=== PATIENT | female | born 1950 | race Caucasian/White ===

== ENCOUNTER 2020-06-27 09:16 | Inpatient (IN) ==
[2020-06-27] MEDS ORDERED: ASPIRIN CHEW 324 MG ONE (09:52)
[2020-06-27] MEDS ORDERED: ASPIRIN CHEW 324 MG PO STA (09:52)
[2020-06-27 10:13] LABS: iSTAT Creatinine 0.6 mg/dl (0.6-1.3); iSTAT Hemoglobin 13.3 g/dl (12.0-16.0); iSTAT Ionized Calcium 1.27 mmol/l (1.12-1.32); iSTAT Potassium 3.7 mmol/L (3.3-5.0)
[2020-06-27 10:23] LABS: Basophils # (auto) 0.03 K/uL (0-0.2); Basophils % (auto) 0.4 %; Eosinophils # (auto) 0.08 K/uL (0-0.5); Eosinophils % (auto) 1.1 %; Hematocrit (blood only) 40.1 % (37-47); Hemoglobin 13.9 g/dL (12.0-16.0); Immature Granulocytes # (auto) 0.02 K/uL (0.00-0.02); Immature Granulocytes % (auto) 0.3 %; Lymphocytes # (auto) 1.85 K/uL (1.2-3.4); Lymphocytes % (auto) 24.9 %; Mean Corpuscular Hemoglobin 31.7 pg (25-34); Mean Corpuscular Hgb Conc 34.7 g/dL (32-36); Mean Corpuscular Volume 91.6 fL (80-100); Mean Platelet Volume 10.8 fL (7.4-10.4); Monocytes # (auto) 0.65 K/uL (0.11-0.59); Monocytes % (auto) 8.7 %; Neutrophils % (auto) 64.6 %; Platelet Count 384 K/uL (130-400); RDW Coefficient of Variation 13.3 % (11.5-14.5); RDW Standard Deviation 44.5 fL (36.4-46.3); Red Blood Count 4.38 M/uL (4.2-5.4); White Blood Count 7.43 K/uL (4.8-10.8)
--- NOTE | 2020-06-27 10:28 | XRay Report ---
XR chest 1V portable CLINICAL HISTORY: Atypical chest pain. COMPARISON STUDY: No previous studies for comparison. FINDINGS: Lung volumes are normal. Lungs are clear. There is no pneumothorax or pleural effusion. Car diac size is normal. Mediastinal contours are normal. There is no evidence for pulmonary edema. A jad ear density projects over the left clavicle. IMPRESSION: No acute cardiopulmonary findings. ACT 112: Negative or not required by law. Electronically signed by: Sea Villarreal M.D. 06/27/2020 10:27 AM
[2020-06-27 10:40] LABS: BUN Creatinine Ratio 28.9 (10-20); Calcium 10.3 mg/dl (8.5-10.1); Creatinine Clr Calc Pharmacy 67.6 ml/min; Est GFR (African American) 86.5; Est GFR (Non-African American) 74.6; Magnesium 2.2 mg/dl (1.8-2.4); Potassium 3.5 mmol/L (3.5-5.1)
[2020-06-27] MEDS ORDERED: Heparin IV Adult Wt-Based Low-Dose WITH Bolus Protocol STA (10:41)
[2020-06-27] MEDS ORDERED: HEPARIN SODIUM/DEXTROSE 25,000 UNITS/500 ML BAG IV SCH (10:45)
[2020-06-27] MEDS ORDERED: HEPARIN SOD (PORCINE) 1000 UNIT/ML ONE (10:50)
--- NOTE | 2020-06-27 10:50 | History & Physical Report ---
Date of Service June 27, 2020 Assessment & Plan (1) NSTEMI (non-ST elevated myocardial infarction): Aspirin 81 mg p.o. daily Start metoprolol tartrate 25 mg twice daily -first dose tonight Start atorvastatin 40 mg p.o. every afternoon - noted history of statin induced muscle cramps therefore elected for 40 rather than 80 mg Continue heparin IV low-dose with bolus Lipid panel and HbA1c with a.m. labs Consult cardiology - n.p.o. for cardiac catheterization later today (2) Hyperlipidemia: Noted history of this. Untreated due to statin induced muscle cramps. Lipid panel in a.m. and start atorvastatin as above. (3) DVT prophylaxis: Heparin IV drip as above Admission and Anticipated Discharge Date Admission Date: June 27, 2020 History of Present Illness Chief Complaint: Chest pain Primary Care Provider: RENA Munroe Wilbert Moore is a 70-year-old female who presents to the ER with chest pain. She reports waking up around 5:30 AM today and having an egg sandwich. She first noted significant substernal chest pain at 6 AM radiating both sides to her back. She felt this may be reflux (she has had intermittent burping for the past year which is relieved with Tums) therefore took some Tums although did not significantly change the pain. After resting her pain went away and she managed to go to work but felt significantly fatigued that she needs to go home. On the drive home her chest pain returned with associated diaphoresis. Again this appeared to relieve at rest when she got home. After coming back again she asked her neighbor to drive her to the emergency room as she was concerned she may be having a heart attack. During the drive down the insides she noticed associated shortness of breath, nausea and diaphoresis. Severity 7/10 [address] drive. This was also the longest it lasted for around 30 minutes. After having a bowel movement in the emergency room she felt significant relief from her chest pain and it is not yet returned. Notable history of hyperlipidemia which is untreated due to side effects from x3 statins causing muscle cramps. She denies any significant history resembling unstable angina. Significant family history of myocardial infarction on both sides of her family however family members were > 60 years old at the time. Non-smoker. In the ER EKG was remarkable for ST depressions in anterior lateral leads. Troponin elevated at 0.117. She is chest pain-free. She has been seen by interventional cardiology and will be taken for cardiac catheterization later today. Allergies Allergy/AdvReac Type Severity Reaction Status Date / Time No Known Allergies Allergy Unverified 12/06/19 08:27 Home Medications Medication Instructions Recorded Confirmed Type No Known Home Medications 12/06/19 12/06/19 History Past Med/Surg History Medical History (Updated 06/27/20 @ 16:12 by Lito Mccurdy) Acne rosacea Surgical History Broken collarbone History of left knee replacement History of left knee replacement History of tonsillectomy Hx of tubal ligation Family History Father Diabetes Hypertension Grandfather (Maternal) Heart disease Mother Stroke Denies family history of Ovarian cancer Prostate cancer Colorectal cancer Social History Smoking Status: Never smoker Second Hand Exposure: No; Hx Alcohol Use: No Hx Substance Use: No Preferred Language: Libyan Dump Grader Required: No Beliefs That Will Affect Care: None marital status: Current Living Situation: Alone current occupational status: employed current occupation: [employer] Feels Safe at Home: Yes Dental Care, Regularly: Yes Physical Activity Frequency: 1-2 Times per Week Assistive Devices: Glasses Review of Systems Review of Systems: All systems reviewed & are unremarkable except as noted in HPI & below Physical Exam Constitutional: well developed and well nourished; no acute distress Eyes: + anicteric sclerae; normal pupil size ENMT: external ear and nose normal, oropharynx normal Respiratory: normal respiratory effort, lungs clear to auscultation Cardiovascular: RRR, no murmur, no edema Gastrointestinal (Abdomen): normal bowel sounds, soft, nontender, no hepatosplenomegaly Musculoskeletal: no cyanosis or clubbing, extremities motor strength 5/5 Skin: no rashes, warm and dry Neurologic: moves all extremities and awake; not confused Psychiatric: A+Ox3, euthymic affect Genitourinary: no CVA tenderness Results & Data Results & Data ([facility]) Vital Signs (Past 12 Hours) Vital Signs Temp Pulse Pulse Resp BP BP Pulse Ox 06/27/20 10:40 72 18 112/70 100 06/27/20 09:33 95 06/27/20 09:19 36.4 C L 75 18 134/81 100 Diagnostic Findings XR chest 1V portable IMPRESSION: No acute cardiopulmonary findings. Medications Administered ER medications given: Aspirin 324 mg p.o. Heparin IV low-dose with bolus ECG Indication: chest pain Rate (beats per minute): 61 Rhythm: normal sinus Findings: + LAFB, + RBBB (old) and + ST depression (Anterolateral) Comparison ECG Date: from (November 20, 2015) Change: the following changes noted (Significant ST depression as above is new) Additional Comments: ST changes are dynamic/improving from serial EKGs Code Status & VTE Plan Code Status Full VTE Prophylaxis Plan VTE Prophylaxis will be ordered: Yes PG Care Time/CCT Total # of Minutes Spent Total Time Spent with Patient: Total time spent is greater than 50% in coordination of care (as documented) at patient's floor/unit and/or counseling patient: Coding Level of Care Code 26343 Initial Inpt Care Lvl 2 History Comprehensive Exam Comprehensive Medical Decision Making Moderate Complexity Diagnoses NSTEMI (non-ST elevated myocardial infarction) I21.4 Hyperlipidemia E78.5 Hyperlipidemia type: unspecified DVT prophylaxis Z29.9 (1) Hyperlipidemia Hyperlipidemia type: unspecified Qualified Code(s): E78.5 - Hyperlipidemia, unspecified
[2020-06-27 10:51] LABS: Troponin I 0.117 ng/ml (0-0.045)
[2020-06-27 11:07] LABS: Partial Thromboplastin Ratio 1.1; Partial Thromboplastin Time 28.4 Seconds (21.0-31.0); Prothrombin Time 9.8 Seconds (9.0-12.0)
[2020-06-27] MEDS ORDERED: fentaNYL citrate 100 MCG/2 ML VIAL ONE (11:19)
[2020-06-27] MEDS ORDERED: niCARdipine HCL INJ 2.5 MG/ML 10 ML AMP ONE (11:19)
[2020-06-27] MEDS ORDERED: HEPARIN (PORCINE) 1000 UNIT/ML 10 ML (CATH LAB USE ONLY) ONE (11:19)
[2020-06-27] MEDS ORDERED: MIDAZOLAM HCL 1 MG/ML 2ML VIAL ONE ×2 (11:20→12:38)
[2020-06-27] MEDS ORDERED: NITROGLYCERIN/D5W 100MCG/ML 20ML SYR ONE (11:20)
--- NOTE | 2020-06-27 11:23 | Pre Anesthesia Assessment ---
Date of Service June 27, 2020 Pre Sedation Assessment Vital Signs Temp Pulse Pulse Resp BP BP Pulse Ox 06/27/20 11:12 97.9 F 77 18 132/79 96 06/27/20 10:58 63 20 112/70 98 06/27/20 10:40 72 18 112/70 100 06/27/20 09:33 95 06/27/20 09:19 97.5 F L 75 18 134/81 100 Cardiovascular RRR, no murmur, no edema Respiratory normal respiratory effort, lungs clear to auscultation Pre-Sedation Airway Assessment Smoking Status: Never smoker Hx Sleep Apnea: No Hx Difficult Intubation: No Short, Thick Neck: No Thyromental Distance: > or= 3.5 Finger Breadths Oral Cavity: + WNL Mallampati Class: III ASA: ASA3 Procedure Planning Contraindications for Sedation: none Current Medications Reviewed: Yes Notes The planned sedation has been discussed with the patient. Informed Consent was obtained. I have identified the patient, determined the appropriateness of sedation and have assessed the patient immediately prior to the procedure. All medicine(s) and interventions are by my order.
--- NOTE | 2020-06-27 11:37 | Cardiology Consultation ---
Date of Consultation June 27, 2020 Assessment & Plan (1) NSTEMI (non-ST elevated myocardial infarction): Presentation consistent with high-risk NSTEMI nd recommend proceeding with urgent cardiac catheterization and likely primary PCI. No apparent contraindications to procedure. Discussed risks, benefits, alternatives of procedure with patient and they are willing to proceed. Given IV heparin in the ED. Further recommendations pending findings of coronary angiography. History of Present Illness Attending Physician: Wilbur Avila MD History of Present Illness 70-year-old year old woman here with acute chest pain and ECG concerning for high-risk ACS. Patient seen urgently in the ED after initial ECG showed dynamic anterior ST depressions. No prior cardiac history. Cardiac risk factors include dyslipidemia and family history of CAD (Father AL 70s). Other medical issues include osteoarthritis post left knee replacement. Has had stuttering chest pain since last night. This morning pain became more intense. Describes bilateral chest side pain radiating up into her neck and back with associated nausea/belching, diaphoresis. Denies similar symptoms in the past. Chest pain severe at arrival but resolved with aspirin Hemodynamically stable. EKG showed sinus rhythm with old RBBB, new LAFB and deep ST depressions in V2- V6, also with inferior ST depressions and ST elevation in AVR. After chest pain resolved ST depressions improved. Initial troponin 0.117. Allergies Allergy/AdvReac Type Severity Reaction Status Date / Time No Known Allergies Allergy Unverified 12/06/19 08:27 Home Medications Medication Instructions Recorded Confirmed Type No Known Home Medications 12/06/19 12/06/19 History Patient History Medical History (Updated 06/27/20 @ 11:24 by Ashvin Jones MD) Acne rosacea Surgical History Broken collarbone History of left knee replacement History of left knee replacement History of tonsillectomy Hx of tubal ligation Family History Father Diabetes Hypertension Grandfather (Maternal) Heart disease Mother Stroke Denies family history of Ovarian cancer Prostate cancer Colorectal cancer Social History Smoking Status: Never smoker Second Hand Exposure: No; Hx Alcohol Use: No Hx Substance Use: No Preferred Language: Urugu[place] Pattern Hanger Required: No Beliefs That Will Affect Care: None marital status: Current Living Situation: Alone current occupational status: employed current occupation: [employer] Feels Safe at Home: Yes Dental Care, Regularly: Yes Physical Activity Frequency: 1-2 Times per Week Assistive Devices: None Physical Exam Constitutional: no acute distress and not ill appearing Eyes: + anicteric sclerae Respiratory: normal respiratory effort, lungs clear to auscultation Cardiovascular: RRR, no murmur, no edema Vessels: radial pulses present Extremities: no edema Gastrointestinal (Abdomen): normal bowel sounds, soft, nontender, no hepatosplenomegaly Skin: no rashes, warm and dry Neurologic: no focal motor deficits Psychiatric: A+Ox3, euthymic affect Results & Data ([facility]) Vital Signs (Past 12 Hours) Vital Signs Temp Pulse Pulse Resp BP BP Pulse Ox 06/27/20 11:12 97.9 F 77 18 132/79 96 06/27/20 10:58 63 20 112/70 98 06/27/20 10:40 72 18 112/70 100 06/27/20 09:33 95 06/27/20 09:19 97.5 F L 75 18 134/81 100 PG Care Time/CCT Total # of Minutes Spent Total Time Spent with Patient: Total time spent is greater than 50% in coordination of care (as documented) at patient's floor/unit and/or counseling patient: Coding Level of Care Code 87678 Initial Inpt Care Lvl 3 Diagnoses NSTEMI (non-ST elevated myocardial infarction) I21.4
[2020-06-27 12:20] LABS: Influenza A virus by PCR Negative (Neg); Influenza B virus by PCR Negative (Neg); RSV by PCR Negative (Neg); SARS CoV2 RNA(COVID-19) InHosp NEGATIVE (Negative)
[2020-06-27] MEDS ORDERED: TICAGRELOR 90 MG TAB PO ONE (13:01)
--- NOTE | 2020-06-27 13:33 | Post Anesthesia Assessment ---
Date of Service June 27, 2020 Post Sedation Assessment Vital Signs Temp Pulse Pulse Resp BP BP Pulse Ox 06/27/20 13:15 64 20 104/71 96 06/27/20 11:12 97.9 F 77 18 132/79 96 06/27/20 10:58 63 20 112/70 98 06/27/20 10:40 72 18 112/70 100 06/27/20 09:33 95 06/27/20 09:19 97.5 F L 75 18 134/81 100 Recovery Score Activity: Moves 4 extremities Respiration: Deep Breath/Cough Circulation: +/-20% PreAnes Value Consciousness: Fully Awake Oxygen Saturation: > 92% On Room Air Post Anesthesia Score: 10 Discharge Sedation Level of Care: Fast Track Phase II Post Sedation Plan On clinical assessment, the patient appears to have tolerated the sedation without complications. Patient is recovering as anticipated. Patient will continue to be monitored by nursing and may be discharged when sedation discharge criteria are met per below protocol. Upon Completions of procedure up to 15 minutes continue every 5 minute vital signs and the P.A.R. score; then discharge to a Phase I or Fast Track to Phase II per the following guidelines: * Discharge Patient to appropriate Phase II area if PAR is 8 or greater or return to pre- procedure baseline. The post - procedure orders will be as directed. * If PAR score is less than 8 or not return to pre-procedure baseline then patient will follow Phase I monitoring till PAR is reached for Phase II. The Phase I may be done in procedure room or may call to secure a Phase I area. * If naloxone or flumazenil are used for reversal, hold in Phase I for continued monitoring from when last reversal dose was given for a minimum of 60 minutes or longer pending the nurse and/or physician discretion of patient condition before discharge to Phase II. Please call the Sedation Physician to re-evaluate and complete post-note for discharge to Phase II area. Do NOT discharge from procedure sedation or Phase 1 until post- sedation evaluation note is complete by procedure /sedation MD Sedation Discharge Instructions to be given to the patient at discharge to home.
[2020-06-27] MEDS ORDERED: ACETAMINOPHEN 325 MG TAB PO PRN ×2 (13:34→14:21)
[2020-06-27] MEDS ORDERED: NITROGLYCERIN SL 0.4 MG/TAB TAB SL PRN (13:34)
[2020-06-27] MEDS ORDERED: ONDANSETRON INJ 2 MG/ML 2 ML VIAL IV PRN ×2 (13:34→14:21)
[2020-06-27] MEDS ORDERED: SODIUM CHLORIDE 0.9% 1000ML 1,000 ML IV SCH ×2 (13:45→14:21)
--- NOTE | 2020-06-27 13:46 | Cardiac Catheterization ---
[facility] Data: Spray Foam Installer Cardiac Status Clinical evaluation leading to the procedure CAD Presenation: Non STEMI Anginal Classification: CCS IV Heart Failure: No Cardiogenic Shock within 24 Hours: No Cardiac Arrest within 24 Hours: No Imaging Studies Past 6 Months: No Stress Studies Past 6 Months: No Diagnostic Physicians Name: Wilbur Avila MD Status: Urgent Closure Device Percutaneous Entry Location: Radial Closure Device: Radial Band Recommendations: PCI without planned CABG PCI Indication: PCI for high risk Non-TONI Lesion Segment Name: Mid LAD Culprit Artery: Yes Stenosis Prior to Rx (%): 95 Chronic Total Occlusion: No IVUS: No FFR: No Pre-Procedure GHAZALA Flow: 3 Previously Treated Lesion: No Lesion Complexity: Non-High/Non-C Lesion Length (mm): 34 Thrombus Present: Yes Bifurcation Lesion: No Guidewire Across Lesion: Stenosis Post-Procedure (%): 0 Post-Procedure GHAZALA Flow: 3 Devices(s) Deployed: Yes Yes Intraprocedure Events Significant Disection: No Perforation: No Cardiac Cath Procedure Full Procedure Date June 27, 2020 Pre-Procedure Diagnosis Pre-Procedure Diagnosis: Non STEMI AUC Score AUC Score: 8 Post-Procedure Diagnosis Post-Procedure Diagnosis: Successful PCI and Normal Intracardiac Pressures Procedure(s) Performed Procedure(s) Performed: Coronary Angiography, Left Heart Cath and Drug Eluting Stent Recreation Attendant Wilbur Avila MD Channeler Runner(s) Arnold Estimated Blood Loss Estimated Blood Loss: 15 Medication(s) Medication(s): Fentanyl, Heparin, Lidocaine 1%, Nicardipine, Nitroglycerin and Versed Medication(s): Ticagrelor Summary of Findings Indication: High risk NSTEMI Access: 6Fr right radial artery Catheters: [place], EBU 3.5 guide Findings: LM -normal caliber, short, angiographically normal LAD -large caliber, calcified diffuse proximal to mid disease up to 95%, distal vessel without significant disease and wraps around apex RamusLarge caliber, no significant disease Circumflex -medium caliber, no significant disease RCA -dominant, large caliber, no significant disease LVEDP - 14 -- PCI -- Antithrombotic therapy: Heparin, Ticagrelor Procedure: Left main cannulated with EBU 3.5 guide BMW wire passed across lesion into distal vessel Proximal to mid LAD lesion predilated with 2.75 compliant balloon Dilated lesion stented with 4.0 x 34 mm Don drug-eluting stent Stent post-dilated with 4.0 noncompliant balloon IC vasodilators administered for spasm Post procedure GHAZALA 3 flow, stent well expanded with minimal residual stenosis and no apparent cardiac complications. Arterial Closure: TR band Summary: 1. Severe single vessel coronary artery [id number] - 95% mid LAD stenosis 2. Normal intracardiac filling pressure 3. Successful PCI of proximal to mid LAD with single drug-eluting stent (4.0 x 34 mm Don). Recommendations: To PCU for continued monitoring Loaded with ticagrelor 180 mg in Spray Foam Installer Continue dual-antiplatelet therapy for at least 1 year Continue statin, and ASCVD risk factor modification Consult cardiac Rehab Hemodynamics Rest Ao:: 107/65/89 Final Ao: 98/61/77 LV: 113/50 Recommendations Recommendations: PCI without planned CABG Specimens Specimens: None Radiation Exposure (mGy) 999 Contrast (mls) 70 Fluids (cc crystalloids) Fluids (cc crystalloids): 111 Drains Drains: none Anesthesia moderate Procedural Complication(s) None Disposition PCU I attest to the content of the Intraoperative Record and any orders documented therein. Any exceptions are noted below. [facility] Card Cath Procedure Codes Cardiac Catheterization Procedure 1: Cardiovascular Cath Procedures: 97750 Coronaries and LHC (+/-LV) Moderate Sedation Procedure 1: Sedation/Anesthesia: 79452 Mod Sedation by the same physician;Init15 Min Child Age 5 & Up Procedure 2: Sedation/Anesthesia: 63364 Mod Sedation by the same physician; Ea [id number] Minutes Stenting Procedure 1: Cardiovascular Stent Procedures: 62554 Perc transcatheter placement of intracoronary stent(s), with ang PG Care Time/CCT Total # of Minutes Spent Total Time Spent with Patient: Total time spent is greater than 50% in coordination of care (as documented) at patient's floor/unit and/or counseling patient:
--- NOTE | 2020-06-27 14:42 | Electrocardiogram Report ---
Test Reason : Blood Pressure : / mmHG Vent. Rate : 061 BPM Atrial Rate : 061 BPM P-R Int : 182 ms QRS Dur : 136 ms QT Int : 444 ms P-R-T Axes : 031 -54 005 degrees QTc Int : 446 ms Normal sinus rhythm Right bundle branch block Left anterior fascicular block Bifascicular block Marked ST abnormality, possible anterolateral subendocardial injury Abnormal ECG When compared with ECG of 20-NOV-2015 10:24, Left anterior fascicular block is now Present ST now depressed in Anterolateral leads Confirmed by Ahsan Rivas ([id number]) on 06/27/2020 2:41:53 PM Referred By: REFERRED SELF Confirmed By:Ahsan Rivas
--- NOTE | 2020-06-27 14:44 | Electrocardiogram Report ---
Test Reason : Blood Pressure : / mmHG Vent. Rate : 060 BPM Atrial Rate : 060 BPM P-R Int : 180 ms QRS Dur : 144 ms QT Int : 458 ms P-R-T Axes : 026 -45 008 degrees QTc Int : 458 ms Normal sinus rhythm Right bundle branch block Left anterior fascicular block Bifascicular block Abnormal ECG When compared with ECG of 27-JUN-2020 09:25, (unconfirmed) ST abnormality has improved Confirmed by Ahsan Rivas ([id number]) on 06/27/2020 2:44:30 PM Referred By: REFERRED SELF Confirmed By:Ahsan Rivas
--- NOTE | 2020-06-27 16:07 | Emergency Department Note ---
History of Present Illness General Chief Complaint: Cardiac Assessment Stated Complaint: CHEST PAIN/FEELING NAUSEOUS Time Seen by Provider: 06/27/20 09:23 History of Present Illness Provider Complaint: chest pain Onset (ago): day(s) 1 Duration: now resolved Onset: during rest Pain Location: substernal Pain Radiation: none Severity: severe Maximum Pain Intensity: 10 Current Pain Intensity: 0 Quality: + heaviness and + other (pressure) Relieved By: + nothing Exacerbated By: + nothing Context: no recent illness, no recent surgery, no recent travel, no trauma/injury and no history of DVT/PE Associated symptoms: no nausea, no vomiting, no diaphoresis, no dyspnea, no syncope, no palpitations, no fever, no cough and no leg swelling Treatments prior to arrival: none Home Medications Medication Instructions Recorded Confirmed Type No Known Home Medications 12/06/19 12/06/19 History Allergies Allergy/AdvReac Type Severity Reaction Status Date / Time No Known Allergies Allergy Unverified 12/06/19 08:27 Past Med/Surg History Medical History (Updated 06/27/20 @ 16:12 by Lito Mccurdy) Acne rosacea Surgical History Broken collarbone History of left knee replacement History of left knee replacement History of tonsillectomy Hx of tubal ligation Family History Father Diabetes Hypertension Grandfather (Maternal) Heart disease Mother Stroke Denies family history of Ovarian cancer Prostate cancer Colorectal cancer Social History Smoking Status: Never smoker Second Hand Exposure: No; Hx Alcohol Use: No Hx Substance Use: No Preferred Language: Andorran Train Announcer Required: No Beliefs That Will Affect Care: None marital status: Current Living Situation: Alone current occupational status: employed current occupation: [employer] Feels Safe at Home: Yes Dental Care, Regularly: Yes Physical Activity Frequency: 1-2 Times per Week Assistive Devices: Glasses Review of Systems A total of 10 systems reviewed and were otherwise negative Physical Exam Vital Signs Vital Signs - 24 hr 06/27/20 09:19 06/27/20 09:33 06/27/20 10:40 Temperature 36.4 C L Temperature Source Temporal Artery Scan Pulse Rate 75 Pulse Rate [Finger] 72 Respiratory Rate 18 18 Respiratory Effort / Characteristics Non-Labored Respiratory Depth Normal Blood Pressure 134/81 Blood Pressure [Left Arm] 112/70 Blood Pressure Mean 98 Blood Pressure Mean [Left Arm] 84 Pulse Oximetry 100 95 100 Oxygen Delivery Method Room Air Room Air Sepsis Recent Fever Within 48 Hours No Sepsis New/Unexplained Change in Mental Status No Sepsis Action Taken by Nursing No Action Required 06/27/20 10:58 Temperature Temperature Source Pulse Rate Pulse Rate [Finger] 63 Respiratory Rate 20 Respiratory Effort / Characteristics Respiratory Depth Blood Pressure Blood Pressure [Left Arm] 112/70 Blood Pressure Mean Blood Pressure Mean [Left Arm] 84 Pulse Oximetry 98 Oxygen Delivery Method Sepsis Recent Fever Within 48 Hours Sepsis New/Unexplained Change in Mental Status Sepsis Action Taken by Nursing Physical Exam GENERAL: She is oriented to person, place, and time. She appears well-developed and well-nourished. She does not appear distressed. HENT: Exam performed. -Head: Normocephalic and atraumatic. -Right Ear: External ear normal. No mastoid tenderness. -Left Ear: External ear normal. No mastoid tenderness. -Mouth/Throat: The oropharynx is clear and moist. No trismus in the jaw. No dental abscesses or uvula swelling. No oropharyngeal exudate or tonsillar abscesses. EYES: Conjunctivae and EOM are normal. Pupils are equal, round, and reactive to light. Right eye exhibits no discharge. Left eye exhibits no discharge. No scleral icterus. NECK: Normal range of motion. Neck supple. No JVD present. No spinous process tenderness present. No carotid bruit present. No rigidity. No tracheal deviation and normal range of motion present. No Brudzinski's sign and no Kernig's sign noted. CV: Normal rate, regular rhythm, normal heart sounds and intact distal pulses. There is no peripheral edema. Palpable radial pulses bue. PULM/CHEST: Effort normal and breath sounds normal. No respiratory distress. No stridor. She has no wheezes. She has no rales. -Chest Wall: She exhibits no tenderness. ABD: The abdomen is soft. Bowel sounds are normal. She has no distension. No mass is present. There is no tenderness. There is no rebound, no guarding, no Salmeron's sign and no tenderness at McBurney's point. Rovsig negative MUSC/SKEL: Normal range of motion. There is no peripheral edema, tenderness or deformity. LYMPH: No cervical adenopathy. NEURO: She is alert and oriented to person, place, and time. She has normal strength. No cranial nerve deficit or sensory deficit. Coordination and gait normal. GCS eye subscore is 4. GCS verbal subscore is 5. GCS motor subscore is 6. Cerebellar tests wnl. SKIN: Skin is warm and dry. She is not diaphoretic. PSYCH: She has a normal mood and affect. Behavior is normal. Judgment and thought content normal. Course Course 0950: The patient was evaluated in room C6. A complete history and physical exam was performed There is significant delay in evaluating this patient as on arrival into her room in the emergency department the patient went into the restroom and was having a bowel movement it did not come out for many minutes until after. EKG did show ST depression in leads I II V3 V4 V5 and V6. There is also ST elevation in lead aVR. Patient reported no chest pain at this time. 0955: Repeat EKG showed sinus rhythm with a rate of 60. AK and QTc intervals within normal limits QRS is 144. Bifascicular block present. ST depressions in leads I, II V3, V4, V5 V6 are improved as well as the ST elevation in lead aVR however they are still present. 1013: Discussed case with Dr. Avila cardiology who states he will come down to evaluate the patient. He agrees that there are ST depressions and ST elevations. No heart alert at this time per Dr. Avila. 1036: Dr. Avila at bedside. He states to admit the patient to medicine start the patient on heparin and he will cath the patient today. Dr. Jones [place] [facility]ist will be notified. Administered Medications Heparin Sodium/Dextrose (Heparin Sodium/Dextrose) 25,000 units in 500 mls @ 15 mls/hr IV .Q24H IRENE; Protocol Stop: 07/27/20 10:44 Last Admin: 06/27/20 10:54 Dose: 15 units/hr, 0.3 mls/hr Documented by: [id number] Cosigned by: [id number] Sodium Chloride (Nss 1000ml) 1,000 mls @ 100 mls/hr IV .Q10H IRENE Stop: 06/27/20 21:14 Last Admin: 06/27/20 14:40 Dose: 100 mls/hr Documented by: [id number] Discontinued Medications Aspirin (Aspirin Chew 324 Mg) Confirm Administered Dose 324 mg .ROUTE .STK-MED ONE Stop: 06/27/20 09:53 Last Admin: 06/27/20 09:54 Dose: Not Given Documented by: [id number] Aspirin (Aspirin Chew 324 Mg) 324 mg PO NOW STA Stop: 06/27/20 09:53 Last Admin: 06/27/20 09:54 Dose: 324 mg Documented by: [id number] Fentanyl Citrate (Fentanyl Citrate 100 Mcg/2 Ml Vial) Confirm Administered Dose 100 mcg .ROUTE .STK-MED ONE Stop: 06/27/20 11:20 Last Admin: 06/27/20 13:09 Dose: 100 mcg Documented by: [id number] Heparin Sodium (Porcine) (Heparin Sod (Porcine) 1000 Unit/Ml 10 Ml Vial) Confirm Administered Dose 10,000 units .ROUTE .STK-MED ONE Stop: 06/27/20 10:51 Last Admin: 06/27/20 10:55 Dose: 4,000 units Documented by: [id number] Cosigned by: [id number] Heparin Sodium (Porcine) (Heparin (Porcine) 1000 Unit/Ml 10 Ml (Yeast Washer Use Only)) Confirm Administered Dose 10,000 [facility] Stop: 06/27/20 11:20 Last Admin: 06/27/20 13:10 Dose: 5,000 units Documented by: [id number] Heparin Sodium/Dextrose (Heparin Iv Low Dose With Bolus) 1 ea N/A NOW STA; Protocol Stop: 06/27/20 10:42 Last Admin: 06/27/20 10:55 Dose: Not Given Documented by: [id number] Heparin Sodium/Sodium Chloride (Heparin In Nss Infusion 1000 Unit/500 Ml (2 U/Ml) Bag) Confirm Administered Dose 3,000 units IV .STK-MED ONE Stop: 06/27/20 11:21 Last Admin: 06/27/20 13:10 Dose: 3,000 units Documented by: [id number] Midazolam HCl (Midazolam Hcl 1 Mg/Ml 2ml Vial) Confirm Administered Dose 2 mg .ROUTE .STK-MED ONE Stop: 06/27/20 11:21 Last Admin: 06/27/20 13:10 Dose: 2 mg Documented by: [id number] Midazolam HCl (Midazolam Hcl 1 Mg/Ml 2ml Vial) Confirm Administered Dose 2 mg .ROUTE .STK-MED ONE Stop: 06/27/20 12:39 Last Admin: 06/27/20 13:10 Dose: 2 mg Documented by: [id number] Nicardipine HCl (Nicardipine Hcl Inj 2.5 Mg/Ml 10 Ml Amp) Confirm Administered Dose 25 mg .ROUTE .STK-MED ONE Stop: 06/27/20 11:20 Last Admin: 06/27/20 13:08 Dose: 25 mg Documented by: [id number] Nitroglycerin/Dextrose (Nitroglycerin/D5w 100mcg/Ml 20ml Syr) Confirm Administered Dose 2,000 mcg .ROUTE .STK-MED ONE Stop: 06/27/20 11:21 Last Admin: 06/27/20 13:10 Dose: 2,000 mcg Documented by: [id number] Ticagrelor (Ticagrelor 90 Mg Tab) Confirm Administered Dose 180 mg PO .STK-MED ONE Stop: 06/27/20 13:02 Last Admin: 06/27/20 13:08 Dose: 180 mg Documented by: [id number] Medical Decision Making Laboratory Data Result diagrams: 06/27/20 09:35 06/27/20 09:35 Labs: Lab Results 06/27/20 06/27/20 06/27/20 Range/Units 09:35 09:35 09:35 WBC 7.43 (4.8-10.8) K/uL RBC 4.38 (4.2-5.4) M/uL Hgb 13.9 (12.0-16.0) g/dL POC Hgb (12.0-16.0) g/dl Hct 40.1 (37-47) % POC Hct (37-47) % MCV 91.6 (80-100) fL MCH 31.7 (25-34) pg MCHC 34.7 (32-36) g/dL RDW Std Deviation 44.5 (36.4-46.3) fL RDW Coeff of Anahy 13.3 (11.5-14.5) % Plt Count 384 (130-400) K/uL MPV 10.8 H (7.4-10.4) fL Immature Gran % (Auto) 0.3 % Neut % (Auto) 64.6 % Lymph % (Auto) 24.9 % Bennett % (Auto) 8.7 % Eos % (Auto) 1.1 % Baso % (Auto) 0.4 % Neut # (Auto) 4.80 (1.4-6.5) K/uL Lymph # (Auto) 1.85 (1.2-3.4) K/uL Bennett # (Auto) 0.65 H (0.11-0.59) K/uL Eos # (Auto) 0.08 (0-0.5) K/uL Baso # (Auto) 0.03 (0-0.2) K/uL Immature Gran # (Auto) 0.02 (0.00-0.02) K/uL PT (9.0-12.0) Seconds INR (0.9-1.1) APTT (21.0-31.0) Seconds PTT Ratio POC Sodium (135-144) mmol/L Sodium 139 (136-145) mmol/L POC Potassium (3.3-5.0) mmol/L Potassium 3.5 (3.5-5.1) mmol/L POC Chloride (101-112) mmol/L Chloride 108 H (98-107) mmol/L Carbon Dioxide 23 (21-32) mmol/L POC Total CO2 (24-31) mmol/L Anion Gap 8.0 (3-11) POC Anion Gap (16-25) mmol/L POC BUN (7-18) mg/dl BUN 23 H (7-18) mg/dl Creatinine 0.81 (0.6-1.2) mg/dl POC Creatinine (0.6-1.3) mg/dl Est Cr Clr Drug Dosing 67.6 ml/min Est GFR ( Amer) 86.5 Est GFR (Non-Af Amer) 74.6 BUN/Creatinine Ratio 28.9 H (10-20) Glucose 125 H (70-99) mg/dl POC Glucose (other) (70-99) mg/dl Calcium 10.3 H (8.5-10.1) mg/dl POC Ioniz Calcium Shelbi (1.12-1.32) mmol/l Magnesium Cancelled 2.2 Troponin I 0.117 H* (0-0.045) ng/ml Lipase 136 (73-393) U/L COVID-19 Eval Order SARS-CoV-2 (PCR) (Negative) Influenza Type A (PCR) (Neg) Influenza Type B (PCR) (Neg) RSV (RT-PCR) (Neg) 03/31/21 03/31/21 03/31/21 Range/Units 10:01 10:40 10:40 WBC (4.8-10.8) K/uL RBC (4.2-5.4) M/uL Hgb (12.0-16.0) g/dL POC Hgb 13.3 (12.0-16.0) g/dl Hct (37-47) % POC Hct 39 (37-47) % MCV (80-100) fL MCH (25-34) pg MCHC (32-36) g/dL RDW Std Deviation (36.4-46.3) fL RDW Coeff of Anahy (11.5-14.5) % Plt Count (130-400) K/uL MPV (7.4-10.4) fL Immature Gran % (Auto) % Neut % (Auto) % Lymph % (Auto) % Bennett % (Auto) % Eos % (Auto) % Baso % (Auto) % Neut # (Auto) (1.4-6.5) K/uL Lymph # (Auto) (1.2-3.4) K/uL Bennett # (Auto) (0.11-0.59) K/uL Eos # (Auto) (0-0.5) K/uL Baso # (Auto) (0-0.2) K/uL Immature Gran # (Auto) (0.00-0.02) K/uL PT (9.0-12.0) Seconds INR (0.9-1.1) APTT (21.0-31.0) Seconds PTT Ratio POC Sodium 140 (135-144) mmol/L Sodium (136-145) mmol/L POC Potassium 3.7 (3.3-5.0) mmol/L Potassium (3.5-5.1) mmol/L POC Chloride 107 (101-112) mmol/L Chloride (98-107) mmol/L Carbon Dioxide (21-32) mmol/L POC Total CO2 23 L (24-31) mmol/L Anion Gap (3-11) POC Anion Gap 15.0 L (16-25) mmol/L POC BUN 23 H (7-18) mg/dl BUN (7-18) mg/dl Creatinine (0.6-1.2) mg/dl POC Creatinine 0.6 (0.6-1.3) mg/dl Est Cr Clr Drug Dosing ml/min Est GFR ( Amer) Est GFR (Non-Af Amer) BUN/Creatinine Ratio (10-20) Glucose (70-99) mg/dl POC Glucose (other) 128 H (70-99) mg/dl Calcium (8.5-10.1) mg/dl POC Ioniz Calcium Shelbi 1.27 (1.12-1.32) mmol/l Magnesium Troponin I (0-0.045) ng/ml Lipase (73-393) U/L COVID-19 Eval Order [facility]FluRsv at [facility] SARS-CoV-2 (PCR) NEGATIVE (Negative) Influenza Type A (PCR) Negative (Neg) Influenza Type B (PCR) Negative (Neg) RSV (RT-PCR) Negative (Neg) 06/27/20 Range/Units 10:41 WBC (4.8-10.8) K/uL RBC (4.2-5.4) M/uL Hgb (12.0-16.0) g/dL POC Hgb (12.0-16.0) g/dl Hct (37-47) % POC Hct (37-47) % MCV (80-100) fL MCH (25-34) pg MCHC (32-36) g/dL RDW Std Deviation (36.4-46.3) fL RDW Coeff of Anahy (11.5-14.5) % Plt Count (130-400) K/uL MPV (7.4-10.4) fL Immature Gran % (Auto) % Neut % (Auto) % Lymph % (Auto) % Bennett % (Auto) % Eos % (Auto) % Baso % (Auto) % Neut # (Auto) (1.4-6.5) K/uL Lymph # (Auto) (1.2-3.4) K/uL Bennett # (Auto) (0.11-0.59) K/uL Eos # (Auto) (0-0.5) K/uL Baso # (Auto) (0-0.2) K/uL Immature Gran # (Auto) (0.00-0.02) K/uL PT 9.8 (9.0-12.0) Seconds INR 1.0 (0.9-1.1) APTT 28.4 (21.0-31.0) Seconds PTT Ratio 1.1 POC Sodium (135-144) mmol/L Sodium (136-145) mmol/L POC Potassium (3.3-5.0) mmol/L Potassium (3.5-5.1) mmol/L POC Chloride (101-112) mmol/L Chloride (98-107) mmol/L Carbon Dioxide (21-32) mmol/L POC Total CO2 (24-31) mmol/L Anion Gap (3-11) POC Anion Gap (16-25) mmol/L POC BUN (7-18) mg/dl BUN (7-18) mg/dl Creatinine (0.6-1.2) mg/dl POC Creatinine (0.6-1.3) mg/dl Est Cr Clr Drug Dosing ml/min Est GFR ( Amer) Est GFR (Non-Af Amer) BUN/Creatinine Ratio (10-20) Glucose (70-99) mg/dl POC Glucose (other) (70-99) mg/dl Calcium (8.5-10.1) mg/dl POC Ioniz Calcium Shelbi (1.12-1.32) mmol/l Magnesium Troponin I (0-0.045) ng/ml Lipase (73-393) U/L COVID-19 Eval Order SARS-CoV-2 (PCR) (Negative) Influenza Type A (PCR) (Neg) Influenza Type B (PCR) (Neg) RSV (RT-PCR) (Neg) ECG Data Additional Comments: EKG #1 at 925: Sinus rhythm with rate of 61. AK and QTc intervals are within normal limits. QRS 136. Bifascicular block present. ST depression in leads I, II, V3 V4 V5 and V6. There is also ST elevation in lead aVR. EKG #2 at 0952:sinus rhythm with a rate of 60. AK and QTc intervals within normal limits QRS is 144. Bifascicular block present. ST depressions in leads I, II V3, V4, V5 V6 are improved as well as the ST elevation in lead aVR however they are still present. MDM Narrative 0950: The patient was evaluated in room C6. A complete history and physical exam was performed There is significant delay in evaluating this patient as on arrival into her room in the emergency department the patient went into the restroom and was having a bowel movement it did not come out for many minutes until after. EKG did show ST depression in leads I II V3 V4 V5 and V6. There is also ST elevation in lead aVR. Patient reported no chest pain at this time. 0955: Repeat EKG showed sinus rhythm with a rate of 60. AK and QTc intervals within normal limits QRS is 144. Bifascicular block present. ST depressions in leads I, II V3, V4, V5 V6 are improved as well as the ST elevation in lead aVR however they are still present. 1013: Discussed case with Dr. Avila cardiology who states he will come down to evaluate the patient. He agrees that there are ST depressions and ST elevations. No heart alert at this time per Dr. Avila. 1036: Dr. Avila at bedside. He states to admit the patient to medicine start the patient on heparin and he will cath the patient today. Dr. Jones [facility] hospitalist will be notified. Impression & Plan NSTEMI (non-ST elevated myocardial infarction) Critical Care Time Critical Care Time: Yes Total Critical Care Time: 40 I have personally spent greater than 40 minutes of critical care time in the direct management of this patient. This includes bedside care, interpretation of diagnostic studies, and testing, discussion with consultants, patient, and family members, and other required patient management activities. This 40 maria l ariella is in excess of all separately billable procedures. Discharge Plan Visit Data Chief Complaint: Cardiac Assessment Stated Complaint: CHEST PAIN/FEELING NAUSEOUS ED Provider: Lito Mccurdy Discharge Problem: NSTEMI (non-ST elevated myocardial infarction) Patient Disposition: Still a Patient Discharge Instructions Interventions: ED Discharge Assessment Last Done: 06/27/20 11:02
--- NOTE | 2020-06-27 16:23 | Electrocardiogram Report ---
Test Reason : Blood Pressure : / mmHG Vent. Rate : 067 BPM Atrial Rate : 067 BPM P-R Int : 180 ms QRS Dur : 130 ms QT Int : 436 ms P-R-T Axes : 033 -46 010 degrees QTc Int : 460 ms Normal sinus rhythm Right bundle branch block Left anterior fascicular block Bifascicular block Abnormal ECG When compared with ECG of 27-JUN-2020 09:52, T wave inversion more evident in Anterolateral leads Confirmed by Ahsan Rivas ([id number]) on 06/27/2020 4:23:06 PM Referred By: REFERRED SELF Confirmed By:Ahsan Rivas
[2020-06-27] MEDS ORDERED: ATORVASTATIN 40 MG TAB PO SCH ×2 (21:00)
[2020-06-27] MEDS ORDERED: METOPROLOL TARTRATE 25 MG TAB PO SCH ×2 (21:00)
[2020-06-28] MEDS: TICAGRELOR 90 MG TAB PO SCH ×2 (00:58→08:07)
[2020-06-28 04:09] LABS: Hematocrit (blood only) 39.4 % (37-47); Hemoglobin 13.4 g/dL (12.0-16.0); Mean Corpuscular Hemoglobin 31.2 pg (25-34); Mean Corpuscular Volume 91.8 fL (80-100); Mean Platelet Volume 10.4 fL (7.4-10.4); Platelet Count 319 K/uL (130-400); RDW Coefficient of Variation 13.4 % (11.5-14.5); RDW Standard Deviation 44.4 fL (36.4-46.3); Red Blood Count 4.29 M/uL (4.2-5.4); White Blood Count 7.31 K/uL (4.8-10.8)
[2020-06-28 04:30] LABS: BUN Creatinine Ratio 19.8 (10-20); Calcium 8.7 mg/dl (8.5-10.1); Est GFR (African American) 99.7; Est GFR (Non-African American) 86.1; Potassium 3.7 mmol/L (3.5-5.1)
[2020-06-28 04:36] LABS: Troponin I 9.8 ng/ml (0-0.045)
[2020-06-28 05:51] LABS: Estimated Average Glucose 111 mg/dl; Hemoglobin A1C 5.5 % (4.5-5.6)
--- NOTE | 2020-06-28 08:39 | XCELERA ---
[id number]
[2020-06-28] MEDS ORDERED: PANTOprazole 40 MG TAB PO SCH (09:00)
[2020-06-28] MEDS ORDERED: METOPROLOL SUCC 25MG EXT REL TAB PO SCH (09:00)
[2020-06-28] MEDS ORDERED: ASPIRIN 81 MG ECTAB PO SCH ×2 (09:00)
--- NOTE | 2020-06-28 15:22 | Communication Note ---
Date of Service: June 28, 2020 Due to low blood pressure, ovi inhibitor will be on hold. Will continue beta juan carlos and reassess in 2 weeks after discharge.
--- NOTE | 2020-06-28 23:05 | Cardiology Progress Note ---
Date of Service June 28, 2020 Assessment & Plan (1) NSTEMI (non-ST elevated myocardial infarction): Post PCI with CLIFFORD to proximal mid LAD 2. Ischemic cardiomyopathyEF 40 to 45% with LAD distribution wall motion abnormality 3. HyperlipidemiaLDL 199 Chest pain-free. Troponin peaked Electrically stable Moderate LV dysfunction. No signs of heart failure. No access to complications. Okay from a cardiac standpoint for discharge today. Continue DAPT with aspirin, ticagrelor Continue high intensity statin. Previous difficulties with simvastatin, pravastatin. If unable to tolerate statin would be PCSK9 inhibitor candidate. Home on Toprol-XL. We will try to add NATALYA inhibitor as an outpatient if BP allows Follow-up with me in 1 week with limited echo at that time. Admission and Anticipated Discharge Date Admission Date: June 27, 2020 Subjective Feeling well today. No recurrent chest pain. No significant shortness of breath. Ready to go home. Telemetry reviewno events Review of Systems Review of Systems: All systems reviewed & are unremarkable except as noted in HPI & below Physical Exam Constitutional: no acute distress and not ill appearing Eyes: sclerae not anicteric ENMT: Mouth: oral mucous membranes not dry Respiratory: normal respiratory effort, lungs clear to auscultation Cardiovascular: RRR, no murmur, no edema Vessels: radial pulses present (Right radial artery access site with no ecchymosis, hematoma.) Skin: no rashes, warm and dry Neurologic: no focal motor deficits Psychiatric: A+Ox3, euthymic affect Results & Data ([facility]) Vital Signs (Past 12 Hours) Vital Signs Temp Pulse Pulse Resp BP Pulse Ox 06/28/20 16:14 97.9 F 61 16 98/63 L 96 06/28/20 14:46 70 06/28/20 11:14 97.9 F 61 16 98/63 L 96 PG Care Time/CCT Total # of Minutes Spent Total Time Spent with Patient: Total time spent is greater than 50% in coordination of care (as documented) at patient's floor/unit and/or counseling patient: Coding Level of Care Code 39510 Subseq Hosp Care Lvl 3 Diagnoses NSTEMI (non-ST elevated myocardial infarction) I21.4
--- NOTE | 2020-07-05 22:55 | Discharge Summary ---
Date of Service June 28, 2020 Admission HPI Per Admitting Provider Wilbert Moore is a 70-year-old female who presents to the ER with chest pain. She reports waking up around 5:30 AM today and having an egg sandwich. She first noted significant substernal chest pain at 6 AM radiating both sides to her back. She felt this may be reflux (she has had intermittent burping for the past year which is relieved with Tums) therefore took some Tums although did not significantly change the pain. After resting her pain went away and she managed to go to work but felt significantly fatigued that she needs to go home. On the drive home her chest pain returned with associated diaphoresis. Again this appeared to relieve at rest when she got home. After coming back again she asked her neighbor to drive her to the emergency room as she was concerned she may be having a heart attack. During the drive down the [place]ides she noticed associated shortness of breath, nausea and diaphoresis. Severity 7/10 [address] drive. This was also the longest it lasted for around 30 minutes. After having a bowel movement in the emergency room she felt significant relief from her chest pain and it is not yet returned. Notable history of hyperlipidemia which is untreated due to side effects from x3 statins causing muscle cramps. She denies any significant history resembling unstable angina. Significant family history of myocardial infarction on both sides of her family however family members were > 60 years old at the time. Non-smoker. In the ER EKG was remarkable for ST depressions in anterior lateral leads. Troponin elevated at 0.117. She is chest pain-free. She has been seen by interventional cardiology and will be taken for cardiac catheterization later today. Principal Diagnosis NSTEMI Discharge Exam Constitutional: well developed and well nourished; no acute distress Eyes: + anicteric sclerae; normal pupil size ENMT: external ear and nose normal, oropharynx normal Respiratory: normal respiratory effort, lungs clear to auscultation Cardiovascular: RRR, no murmur, no edema Gastrointestinal (Abdomen): normal bowel sounds, soft, nontender, no he patosplenomegaly Musculoskeletal: no cyanosis or clubbing, extremities motor strength 5/5 Skin: no rashes, warm and dry Neurologic: moves all extremities and awake; not confused Psychiatric: A+Ox3, euthymic affect Genitourinary: no CVA tenderness Discharge Data Allergies Allergy/AdvReac Type Severity Reaction Status Date / Time No Known Allergies Allergy Unverified 07/05/20 10:43 Consultations 06/27/20 10:41 ED Decision to Admit Stat 06/27/20 10:57 Consult Cardiology Routine 06/27/20 13:41 Consult Cardiac Rehabilitation Routine Procedures Performed Operation Date: 06/27/20 12:00 Actual Procedures p Cath, Left with Cors and Vent - Jamil Avila MD s Cineradiography w/Routine Exam - Jamil Avila MD s Drug Eluting Stent SGl Vessel - Jamil Avila MD Ordered Studies 06/27/20 11:26 CL Cath Imgs for PACS use only Stat Hospital Course (1) NSTEMI (non-ST elevated myocardial infarction): On admission: Aspirin 81 mg p.o. daily Start metoprolol tartrate 25 mg twice daily -first dose tonight Start atorvastatin 40 mg p.o. every afternoon - noted history of statin induced muscle cramps therefore elected for 40 rather than 80 mg Continue heparin IV low-dose with bolus Lipid panel and HbA1c with a.m. labs Consult cardiology - n.p.o. for cardiac catheterization later today On discharge: 1.NSTEMI (non-ST elevated myocardial infarction): Post PCI with CLIFFORD to proximal mid LAD 2. Ischemic cardiomyopathyEF 40 to 45% with LAD distribution wall motion abnormality 3. HyperlipidemiaLDL 199 Chest pain-free. Troponin peaked Electrically stable Moderate LV dysfunction. No signs of heart failure. No access to complications. Okay from a cardiac standpoint for discharge today. Continue DAPT with aspirin, ticagrelor Continue high intensity statin. Previous difficulties with simvastatin, pravastatin. If unable to tolerate statin would be PCSK9 inhibitor candidate. Home on Toprol-XL. We will try to add NATALYA inhibitor as an outpatient if BP allows Follow-up with me in 1 week with limited echo at that time. (2) Hyperlipidemia: Noted history of this. Untreated due to statin induced muscle cramps. Lipid panel in a.m. and start atorvastatin as above. (3) DVT prophylaxis: Heparin IV drip while hospitalized Total Time Total Time Spent Total Time Spent (In Minutes): 32 Total Time Includes: Examination of the Patient, Discharge Planning and Medication Reconciliation Discharge Plan Discharge Items Patient Disposition: Home - Self-Care Reason For Visit: NSTEMI Discharge Diagnosis: NSTEMI Activity: Resume your previous activity Non-emergency contact: Primary Care Provider Call non-emergency contact if: you have any medication questions Follow-up/Referrals: Ashley Ba CRNP [Primary Care Provider] - 07/03/20 2:00 pm Diet: Heart Healthy and Low Sodium (2gm) Agustin Attending Provider Instructions: You have been hospitalized for an acute medical problem. During your stay at [facility], we have made an effort to correct the problem that brought you to the hospital while keeping you as comfortable as possible. Medications were used to bring your condition under control and your discharge instructions will include directions for any medications you should take after leaving the hospital. Please make sure you see your Primary Care Provider as part of your follow up plan. Agustin [employer] Provider Instructions: Call your Primary Care doctor if any of the following symptoms or problems start or get worse: * Shortness of breath or difficulty breathing * Wake up at night short of breath * Chest pain * Cough * Swelling of your hands, feet, or legs * More fatigued or tired with your normal activity * Palpitations - sudden fast heart beats WEIGHT * Weigh yourself every morning after using the bathroom. * Use the same scale. * Wear the same amount of clothing. * Write your weight down on a chart. * Call your Primary Care doctor if you gain more than 2-3 pounds in 1-2 days. MEDICATIONS * Use this discharge instruction sheet for medication instructions. * Take your medications at the time your doctor ordered. * Do not skip a dose of your medicines. * If you miss a dose of medicine, take it as soon as possible, but DO NOT DOUBLE A DOSE. * Read your medicine information when you get home. * Know all of the side effects of your medicine. If in doubt, ask your pharmacist * Call your Primary Care doctor's office if you have any side effects. * Be sure all of your doctors know what medicine and herbs you take (including cold, flu, and herbal medicine). Take the following with you to your follow-up doctor appointments: * Weight Chart * Medication List * List of questions Do not drink excessive alcohol, beer or wine. Pending Studies at Discharge: No Stand-Alone Forms: My [facility], Smoking Cessation Medications and DC Order Prescriptions: New nitroglycerin [Nitrostat] 0.4 mg Tablet, Sublingual 0.4 mg sublingual Q5M PRN (Reason: chest pain) Qty: 5 RF: 0 No Action aspirin 81 mg tablet,delayed release (DR/EC) 81 mg PO DAILY RF: 0 atorvastatin 80 mg tablet 80 mg PO HS Qty: 30 RF: 11 metoprolol succinate 25 mg tablet extended release 24 hr 25 mg PO QAM Qty: 30 RF: 11 clopidogrel 75 mg tablet 75 mg PO DAILY Qty: 30 RF: 11 Discharge Orders: Discharge Order (Routine); Ordered 06/28/20 Ordered By: Benjamin Allen Admission Data Admit Date/Time: 06/27/20 11:04 Attending Provider: Benjamin Allen Admit Provider: Ashvin Jones Primary Care Provider: Ashley Ba Other Providers: Ashvin Jones ; Jamil Avila Other Interventions: Discharge Summary Assessment (RN) Last Done: 06/28/20 16:14 Coding Level of Care Code D/C Day Management >30 mins Diagnoses NSTEMI (non-ST elevated myocardial infarction) I21.4 Hyperlipidemia E78.5 Hyperlipidemia type: unspecified DVT prophylaxis Z29.9
== END 2020-06-28 17:15 | disposition home or self-care (01) | DRG 247 ==
LOC: ED 09:16 → CC 11:03 → 2S 11:04 → SUATTDRO 11:04